=== PATIENT | female | born 1945 | race African-American/Black ===

== ENCOUNTER 2017-11-06 10:18 | Inpatient (IN) | payer MEDICARE, OTHER ==
[2017-11-06] VITALS (33 sets, daily range): BP systolic 139–149; BP diastolic 78–95; PULSE 72–85; TEMP 97.5–99.5; O2SAT 89–100
[~2017-11-06] VITALS: Ht 172.7 cm; Wt 82.3 kg
[2017-11-06 10:45] LABS: BASO # 0.1 (0.0-0.2); BASO % 0.7 % (0.0-2.0); EOS # 0.1 (0.0-0.7); GRAN # 7.5 (1.4-6.5); GRAN % 81.5 % (42.2-75.2); HEMOGLOBIN 12.2 g/dl (12.5-16.0); LYMPH % 10.4 % (20.0-51.0); MEAN CELL VOLUME 97 fl (80.0-100.0); MEAN CORPUSCULAR HEMOGLOBIN 33 pg (27.0-31.0); MEAN CORPUSCULAR HGB CONC 34 g/dl (33.0-37.0); MEAN PLATELET VOLUME 9.4 fl (7.4-10.4); MONO # 0.6 (0.1-0.6); MONO % 6.1 % (1.7-9.3); PLATELET COUNT 201 K/mm3 (130-400); RED BLOOD COUNT 3.74 M/mm3 (4.10-5.30)
[2017-11-06 10:48] LABS: HEMATOCRIT 36.4 % (37.0-47.0)
[2017-11-06] MEDS ORDERED: ASPIRIN 81M81 MG/TA2 PO (11:00)
[2017-11-06] MEDS ORDERED: TAMBOCOR 1100 MG/TAB PO (11:00)
[2017-11-06 11:02] LABS: BILIRUBIN,TOTAL 0.4 mg/dL (0.0-1.0); C-REACTIVE PROTEIN 1.8 mg/dL (0.0-0.9); CALCIUM 10.1 mg/dL (8.4-10.2); CREATININE, serum 0.67 mg/dL (0.52-1.25)
[2017-11-06] MEDS ORDERED: FOLIC ACID 11 MG/TA1 PO (11:03)
[2017-11-06] MEDS ORDERED: VITAMIN D31000 I1 PO (11:03)
[2017-11-06] MEDS ORDERED: LOPRESSOR 225 MG/TAB PO (11:04)
[2017-11-06] MEDS ORDERED: METHOTREXA2.5 MG/TAB PO (11:04)
[2017-11-06] MEDS ORDERED: MULTI VITAMINS1 TAB PO (11:05)
[2017-11-06] MEDS ORDERED: GOOD NEIGH3.4 GM/Dos PO (11:05)
[2017-11-06] MEDS ORDERED: OMEGA-3 FISH1000 MG PO (11:05)
[2017-11-06] MEDS ORDERED: ALTACE 10MG TAB10 MG PO (11:06)
[2017-11-06] MEDS ORDERED: CALCIUM 600-D 61 TAB PO (11:07)
[2017-11-06 11:13] LABS: TROPONIN-I 0.018 ng/mL (0.000-0.034)
[2017-11-06] MEDS ORDERED: ELIQUIS 5MG PO (16:00)
[2017-11-07] VITALS (648 sets, daily range): BP systolic 105–116; BP diastolic 67–83; PULSE 59–125; TEMP 98–99.3; O2SAT 74–100
[2017-11-07 06:33] LABS: HEMOGLOBIN 11.8 g/dl (12.5-16.0); MEAN CELL VOLUME 96 fl (80.0-100.0); MEAN CORPUSCULAR HEMOGLOBIN 33 pg (27.0-31.0); MEAN CORPUSCULAR HGB CONC 34 g/dl (33.0-37.0); MEAN PLATELET VOLUME 10.1 fl (7.4-10.4); PLATELET COUNT 191 K/mm3 (130-400); RED BLOOD COUNT 3.61 M/mm3 (4.10-5.30); REDCELL DISTRIBUTION WIDTH-CV 13.8 % (11.5-14.5)
[2017-11-07 06:36] LABS: HEMATOCRIT 34.7 % (37.0-47.0)
[2017-11-07 06:38] LABS: INR 1.1 (0.8-3.0); PROTHROMBIN TIME 12.8 SECONDS (9.7-12.8)
[2017-11-07 06:41] LABS: PARTIAL THROMBOPLASTIN TIME 35.4 SECONDS (26.0-37.0)
[2017-11-07 06:45] LABS: CALCIUM 9.9 mg/dL (8.4-10.2); CREATININE, serum 0.77 mg/dL (0.52-1.25); POTASSIUM 4.1 mmol/L (3.4-5.0)
[2017-11-07 06:59] LABS: TROPONIN-I 0.058 ng/mL (0.000-0.034)
[2017-11-08] VITALS (631 sets, daily range): BP systolic 102–121; BP diastolic 61–78; PULSE 61–74; TEMP 98–98.8; O2SAT 75–100
[2017-11-09] VITALS (428 sets, daily range): BP systolic 98–121; BP diastolic 53–90; PULSE 60–97; TEMP 97.7–99.6; O2SAT 88–100
[2017-11-09 06:10] LABS: BASO # 0.1 (0.0-0.2); BASO % 0.7 % (0.0-2.0); EOS # 0.2 (0.0-0.7); EOS % 2.8 % (0-4.0); GRAN # 5.1 (1.4-6.5); GRAN % 62.6 % (42.2-75.2); HEMOGLOBIN 12.2 g/dl (12.5-16.0); LYMPH # 2.1 (1.2-3.4); LYMPH % 25.5 % (20.0-51.0); MEAN CELL VOLUME 95 fl (80.0-100.0); MEAN CORPUSCULAR HEMOGLOBIN 33 pg (27.0-31.0); MEAN CORPUSCULAR HGB CONC 35 g/dl (33.0-37.0); MEAN PLATELET VOLUME 9.3 fl (7.4-10.4); MONO # 0.7 (0.1-0.6); MONO % 8.2 % (1.7-9.3); PLATELET COUNT 230 K/mm3 (130-400); RED BLOOD COUNT 3.67 M/mm3 (4.10-5.30); REDCELL DISTRIBUTION WIDTH-CV 13.5 % (11.5-14.5)
[2017-11-09 06:21] LABS: CALCIUM 10.1 mg/dL (8.4-10.2); CREATININE, serum 0.71 mg/dL (0.52-1.25); POTASSIUM 3.9 mmol/L (3.4-5.0)
[2017-11-09 06:23] LABS: HEMATOCRIT 34.8 % (37.0-47.0)
[2017-11-10] VITALS: BP 125/61; PULSE 60; TEMP 98.6
[2017-11-10 04:00] VITALS: BP 126/66; PULSE 59; TEMP 98.3
[2017-11-10 05:28] LABS: BASO # 0.1 (0.0-0.2); BASO % 0.8 % (0.0-2.0); EOS # 0.2 (0.0-0.7); GRAN # 4.7 (1.4-6.5); HEMOGLOBIN 11.7 g/dl (12.5-16.0); LYMPH # 1.8 (1.2-3.4); LYMPH % 23.8 % (20.0-51.0); MEAN CELL VOLUME 96 fl (80.0-100.0); MEAN CORPUSCULAR HEMOGLOBIN 33 pg (27.0-31.0); MEAN CORPUSCULAR HGB CONC 34 g/dl (33.0-37.0); MEAN PLATELET VOLUME 9.4 fl (7.4-10.4); MONO # 0.6 (0.1-0.6); MONO % 7.7 % (1.7-9.3); PLATELET COUNT 257 K/mm3 (130-400); REDCELL DISTRIBUTION WIDTH-CV 13.5 % (11.5-14.5)
[2017-11-10 05:33] LABS: CALCIUM 10.1 mg/dL (8.4-10.2); CREATININE, serum 0.71 mg/dL (0.52-1.25); POTASSIUM 4.4 mmol/L (3.4-5.0)
[2017-11-10 05:36] LABS: HEMATOCRIT 34.6 % (37.0-47.0)
[2017-11-10 08:00] VITALS: BP 128/71; PULSE 61; TEMP 98.3
[2017-11-10] MEDS ORDERED: TOPROL XL 25MG25 MG PO (08:21)
[2017-11-10] MEDS ORDERED: LIPITOR 40MG TA40 MG PO (08:22)
== END 2017-11-10 09:43 | disposition home or self-care (01) | DRG 281 ==
LOC: COL.ER 10:18 → MEDICAL 12:43 → ICU 20:15 → MEDICAL 20:15 → ICU 21:49
PROVIDERS: Emergency Medicine; Internal Medicine Cardiovascular Disease; Internal Medicine Interventional Cardiology
DX: I48.91 Unspecified atrial fibrillation (principal); I21.A1 Myocardial infarction type 2; I50.32 Chronic diastolic (congestive) heart failure; J90 Pleural effusion, not elsewhere classified; I11.0 Hypertensive heart disease with heart failure; Z53.09 Procedure and treatment not carried out because of other contraindication; Z79.01 Long term (current) use of anticoagulants; Z95.0 Presence of cardiac pacemaker
CPT/HCPCS: J0282; J1940; J7060; Q9967